=== PATIENT | male | born 1980 | race Caucasian/White ===

== ENCOUNTER 2022-05-30 09:20 | Inpatient (IN) | payer OTHER ==
[2022-05-30 10:28] VITALS: BMI 34.7
[2022-05-30] MEDS: NA CHLORIDE 0.9% 1,000 ML IV SCH ×2 (10:55→18:48)
[2022-05-30 12:08] LABS: Albumin 3.3 g/dL (3.4-5.0); Bilirubin Direct 0.2 mg/dL (0-0.2); Bilirubin Total 0.5 mg/dL (0.2-1.0); Protein, Total 6.4 g/dL (6.4-8.2)
[2022-05-30] MEDS ORDERED: MORPHINE 2 MG/ML SYR IV PRN (18:36)
--- NOTE | 2022-05-30 23:06 | HP ---
Date of Admission: 05/30/2022 Reason For Service: Acute cholecystitis, distended gallbladder, right upper quadrant abdominal pain, dilated common bile duct, possible pancreatitis, possible pancreatic mass. History Of Present Illness: This is a case of a 41-year-old patient, comes to us with epigastric rig ht upper quadrant pain radiating to the back, shows in a local ambulatory ER early this morning and a fter evaluation, ultrasound and CAT scan found to have a hydropic gallbladder with distention, also f ound to have a 1.4 cm hypodense lesion in the pancreatic head. They are not sure of his pancreatitis , if it is pancreatic cystic lesion or dilated common bile duct. When they did the ultrasound, they find the distention of the gallbladder and the hydrops, but they say it was difficult for them to vis ualize the gallbladder neck to tell us if there is a stone there or not. I received a phone call fro m the ER for transfer and I understand all this question, so we kindly accept to continue the workup. The patient denies any dysuria, hematuria, hematochezia, or melena. Denies any recent traveling ou t of the country. Denies any family member sick at home. Most of his family members has gallbladder issues with cholecystectomy done before, so he is not a surprise. Past Medical History: None. Past Surgical History: None. Allergies: NONE. Physical Examination: Chest: Clear. Abdomen: Soft and depressible. Epigastric right upper quadrant pain with Vera sign positive. The rest of abdomen is soft and depressible. HEENT: Pupils are equal and reactive. Anicteric. Neck: Supple. Rectal: Deferred. Extremities: Good capillary refill. Neuro: Cranial nerves 2 through 12 grossly within normal limits. Laboratory Data: Blood work still pending. The [facility] could not do lipase for us, trying to clarify the status of the pancreas since we have that pathology on imaging. A CAT scan of the abdomen and pe lvis shows hydropic gallbladder, limitations to evaluate the neck of the gallbladder. So, they canno t tell if there is a stone there or not. There is a 1.4 hypodense lesion in the pancreatic head, pos sible pancreatic cyst lesion or focally dilated common bile duct, pancreatitis cannot be ruled out si nce the lipase cannot be done in that institution. Ultrasound of the gallbladder done at [facility] also shows distended gallbladder. In the fundus of the gallbladder, they could not see any gallstones, bu t in the gallbladder neck where we expect to have a some gallstone to cause this issue and we could n ot visualize that area on the ultrasound. Also, the patient has fatty liver. Those findings were di scussed with the patient and the importance of following up with the primary doctor. Assessment: This is a 41-year-old patient with acute cholecystitis, right upper quadrant abdominal p ain, possible dilated common bile duct, possible stone, possible pancreatitis. The patient was admit teresa to this institution. We are going to do the rest of the blood work that is needed. Also to rule out this lesion in common bile duct, we are going to order an MRCP. The patient understands the richard efits and risks of laparoscopic or possible open cholecystectomy, which include, but not limited to i nfection, bleeding, damage to adjacent structures, anesthesia complication, choledocholithiasis, bile leak, pancreatitis, CT, and even . He also understands this may not relieve the symptoms. He might need more than one surgical intervention. He understands the plan. CLAUDIA Voice ID: [id number]
[2022-05-31] MEDS: NA CHLORIDE 0.9% 1,000 ML IV SCH ×2 (04:14→16:31)
[2022-05-31] MEDS: HYDROCODONE/APAP 5/325 MG TAB PO PRN ×3 (04:31→20:21)
--- NOTE | 2022-05-31 08:51 | RAD REPORT ---
EXAM DESCRIPTION: MRI - Cholangiogram - 05/31/2022 7:45 am CLINICAL HISTORY: 1.4cm pancreatic mass vs dilated CBD COMPARISON: No comparisons FINDINGS: Three-dimensional MRCP was performed using maximum intensity projection reconstruction on the same work station. No intra or extrahepatic biliary ductal dilatation is identified. Cystic structure at the pancreatic head measuring 11 millimeters. No pancreatic ductal dilatation. Pancreas otherwise normal in signal. There is a stone impacted near the cystic duct. Pericholecystic edema is noted. Negative for choledoc holithiasis. IMPRESSION: Stone impacted at the gallbladder neck with pericholecystic edema concerning for acute c holecystitis. Correlate with LFTs. No biliary ductal dilatation. Small cystic structure at the pancre atic head which is not contiguous with the common bile duct could represent a small intraductal papil salima mucinous neoplasm (IPMN) or other benign process suggest sequela of prior pancreatitis. Recommen d 12 month follow-up MRCP.
[2022-05-31] MEDS ORDERED: ACETAMINOPHEN 500 MG TAB ONE (10:36)
[2022-05-31] MEDS ORDERED: CELECOXIB 100 MG CAPSULE ONE (10:37)
[2022-05-31] MEDS ORDERED: propofoL 200 MG/20 ML VIAL IV ONE (10:46)
[2022-05-31] MEDS ORDERED: FENTANYL CITR 100 MCG/2 ML ONE (10:46)
[2022-05-31] MEDS ORDERED: CEFAZOLIN SODIUM 1 GM/VIAL ONE (10:46)
[2022-05-31] MEDS ORDERED: MIDAZOLAM HCL 2 MG/2 ML INJ ONE (10:46)
[2022-05-31] MEDS ORDERED: LIDOCAINE 1% MPF 5 ML VIAL ONE (10:47)
[2022-05-31] MEDS ORDERED: ROCURONIUM 50 MG/5 ML VIAL IV ONE (10:47)
[2022-05-31] MEDS ORDERED: ONDANSETRON 4 MG/2 ML VIAL ONE (10:48)
[2022-05-31] MEDS ORDERED: PIPER TAZO 3.375 GM in NA CHLORIDE 0.9% 100 ML IV ONE (11:00)
[2022-05-31] MEDS ORDERED: EPHEDRINE SULF 50 MG/ML VIAL ONE (11:24)
[2022-05-31] MEDS ORDERED: dexAMETHasone 4 MG/ML VIAL ONE (11:30)
--- NOTE | 2022-05-31 12:20 | P.BOP ---
Preoperative diagnosis: Acute cholecystitis, sympt cholelithiasis, pancreatitis Postoperative diagnosis: same, extensive intrabdominal adhesions Primary procedure: 1. Laparoscopic cholecystectomy Secondary procedure: 2. Laparoscopic lysis of adhesions Safety Net Maker: DANIELLE SARGENT (ELECTROTHERAPIST) Estimated blood loss: <20cc Specimen: GB Findings: as above. See dicta Anesthesia: General Complications: None Drain(s): LIANNA drain Transferred to: Recovery Room Condition: Good
[2022-05-31] MEDS ORDERED: KETOROLAC 30 MG/ML INJ ONE (12:53)
[2022-05-31 13:10] VITALS: O2SAT 98
[2022-05-31] MEDS: PIPER TAZO 3.375 GM in NA CHLORIDE 0.9% 100 ML IV SCH (16:33)
--- NOTE | 2022-05-31 16:57 | PN ---
Date of Progress Note: 05/31/2022 Reason For Service: Acute cholecystitis, pancreatitis and pancreatic mass, gallbladder hydrops, chol ecystitis, gallbladder wall edema with its stone impacted in the neck of the gallbladder. Subjective: This is a case of a 41-year-old patient transferred from [facility] ER with acute cholecystit is. Initially, ultrasound and CT scans were inconclusive. We just had an MRI in that area that gave us a little bit more understanding of what was going on with him. He still have Vera sign positiv e on the MRI when they are to review with Dr. Dunham and his radiologist in his office and is still show showing gallbladder wall edema, the hydrops and stone impacted in the neck of the gallbladder. Ther e are also some findings on the area of the pancreas which he does not believe anything important. I just recommend an MRCP in 1 year from now and it is very certain he is not involved in this process of the gallbladder. We have to mention this patient had surgery when he was a baby that he was say i t was in the duodenum. Never have any issues after that until now when he has his neck and packed in the gallbladder area. I discussed the case with him at length. Discussed with him the ultrasound, CT scan, the blood work with normal amylase, normal lipase. Discussed with him also the findings of the pancreas, although they are not since we are queued or related to the gallbladder at this moment. It is still a mystery in that region that should be examined in the future. We recommend not to fo rget about this. He has a transverse incision in the right upper side. We have no records of his burr rgery when he was a baby. The patient is still having pain and the gallbladder is distended. We wer e afraid this may develop into some ischemia eventually, so for that reason, we offered him laparosco pic possible open cholecystectomy with benefits, alternatives, and risks including, but not limited t o infection, bleeding, damage to adjacent structures as complication, choledocholithiasis, bile leak, pancreatitis, [place], and even . He also understands this may not relieve any symptoms. He might need more than one surgical intervention. We are going to do a diagnostic lap first. We understand h is previous surgery, so he might not be able to complete the procedure. He understands that part. I f we find out that there is more disease or pathologies that we could not find neither an MRI judging by the lack of seen the stone previously on the CAT scan and the ultrasound even though it was there . He understand the limitations of the imaging. After discussing the pros and cons, he still want t o proceed with laparoscopic possible open cholecystectomy. There is always an option of percutaneous drainage of the gallbladder, if the gallbladder surgery cannot be done, but he wants to do that as a n alternative, not as the main treatment. Understanding all this, the pros and cons of this, then we will proceed with the surgical intervention. IVY/JAVIER Voice ID: [id number] Report ID: [id number]
--- NOTE | 2022-05-31 18:28 | OP ---
Date of Procedure: 05/31/2022 Surgeon: Mj Yates MD Preoperative Diagnoses: Acute cholecystitis symptomatic cholelithiasis, gallbladder distention, gall bladder obstruction, pancreatitis, history of duodenal surgery when he was a baby, possible pancreati c mass versus cyst. Postoperative Diagnosis: Acute cholecystitis symptomatic cholelithiasis, gallbladder distention, gal lbladder obstruction, pancreatitis, history of duodenal surgery when he was a baby, possible pancreat ic mass versus cyst plus extensive intraabdominal adhesions. Procedures: Laparoscopic cholecystectomy, laparoscopic lysis of adhesions. Anesthesia: General plus local. Complications: None. Findings: Inflamed gallbladder distention, multiple scar tissue in the abdomen. The patient has a m idline incision across the right upper quadrant from previous surgery when he was a young. All that area have scar tissue and have to be removed and also scar tissue to the gallbladder and to the liver that needs to be removed before we even start the case. As described on the MRCP, there is a stone impacted in the neck of the gallbladder. There is high drop with purulent discharge coming from the gallbladder itself too. Drains: LIANNA #10. Indication: This is the case of a 41-year-old patient with abdominal pain, Vera sign positive in r ight upper quadrant, still active, previous ultrasound and CAT scan done during this admission in [facility] before, shows no gallstones, but the case did not make sense, so we have an MRCP done this morning , which just showed some light and help us understand better his conditions and treat him better. Th e patient has previous surgery for congenital problems as he described it, although he cannot give us details and that he has a large right upper quadrant incision and he says it was some duodenum probl ems there. They have some connections. The patient also on the CAT scan and the MRI showed some fin dings on the pancreas, but the radiologist does not believe it is reactive, could be just from the pr evious surgery, but they recommended to have an MRCP in the future. The patient knows that it is imp ortant that he follow up with his doctor there. The patient was not getting better, the gallbladder is getting more swollen, Vera sign positive, so understanding all these risks and all these limitat ions, we offered him also options and the case will be either percutaneous drainage of the gallbladde r or laparoscopic cholecystectomy. He obviously preferred laparoscopic cholecystectomy after we expl ained to him the pros and cons of each procedure. The benefits, alternatives, and risks of laparosco pic possible open cholecystectomy fully explained, which include, but not limited to infection, bleed ing, damage to adjacent structures, anesthesia complication, choledocholithiasis, bile leak, pancreat itis, [place], and even . He also understands this may not relieve any symptoms. He might need more than one surgical intervention. He understood and signed the consent. Procedure: The patient was brought to the operating room, placed in supine position. Anesthesia was done without complication. Abdominal area was prepped and draped in the usual sterile fashion. Mar junito 0.5% was injected for local anesthetic followed by sharp incision of the skin in the infraumbil ical region. The incision was carried down to fascia, which was opened under direct vision. Periton eum was encountered, opened under direct vision. Vicryl #1 placed inside the fascia. Dee trocar was carefully introduced. Pneumoperitoneum was obtained. Immediately, we noticed all the scar tissu e in the right upper quadrant, so I placed a 5 mm trocar sequentially as we removed the adhesions in the right upper quadrant under direct visualization. The adhesions were removed with the help of Lig aSure. We spent about half of the time just doing the adhesions itself, also some adhesions of oment um to the liver not allowing the gallbladder to be visualized and also omental adhesions to the gallb ladder too. So in a very careful fashion slow but making progress, we proceeded to remove all these adhesions until we have the anatomy defined. Once we have that, we put a grasper in the fundus of th e gallbladder, another grasper in the infundibulum, retracting the gallbladder in the inferolateral f ashion, exposing the triangle of Calot, obtaining critical view. Cystic duct and cystic artery were clearly isolated, freed circumferentially and a connection between those and the gallbladder was eddie rly identified. I proceeded to ligate those by using at least 3 clips proximal, 1 clip distal, ligat ion in middle. Same was done with the cystic artery. No bile leak. No bleeding. The gallbladder w as removed from liver using Bovie cauterizer and removed from abdominal cavity using EndoCatch throug h the umbilical incision. We have to extend incision on the bellybutton since the gallbladder was so thick and gallstone did not come through our initial incision. Camera was placed once again after p neumoperitoneum was obtained. We checked for hemostasis. There was a lot of dissection in that area , a lot of raw area on the liver region. We obtained hemostasis, but we also left a LIANNA drain coming through 1 of the trocar sites and secured in place with 3-0 nylon. This is in the right upper. At t hat moment, I proceeded to remove the trocars under direct vision after making sure we have hemostasi s and made sure the adhesions also have no bleeding. At that moment, I proceeded to remove the troca rs under direct vision. Deflated the pneumoperitoneum. Closed the fascia with #1 Vicryl. Irrigated subcutaneous tissue, closed that with 3-0 chromic and the skin with blade. LIANNA was connected to bu lb suction. The patient tolerated the procedure well. The patient on his way to recovery in stable condition. IVY/JAVIER Voice ID: [id number] Report ID: [id number]
[2022-05-31] MEDS: MORPHINE 4 MG/ML SYR IV PRN ×2 (21:41→23:54)
[2022-06-01] MEDS: PIPER TAZO 3.375 GM in NA CHLORIDE 0.9% 100 ML IV SCH ×2 (00:50→08:12)
[2022-06-01] MEDS: HYDROCODONE/APAP 5/325 MG TAB PO PRN ×2 (03:07→08:13)
[2022-06-01] MEDS: NA CHLORIDE 0.9% 1,000 ML IV SCH (03:08)
--- NOTE | 2022-06-01 13:38 | P.DS ---
Admission Date: 05/30/22 Discharge Date: 06/01/22 Disposition: ROUTINE DISCHARGE Discharge Condition: GOOD Vital Signs/Physical Exam: Temp Pulse Resp BP Pulse Ox 97.7 F 68 14 106/61 97 06/01/22 04:00 06/01/22 08:00 06/01/22 09:13 06/01/22 08:00 06/01/22 09:13 General: Alert, Oriented x3, Cooperative HEENT: PERRLA, EOMI, Sclerae nonicteric Neck: Supple Respiratory: Normal air movement Gastrointestinal: Other (LIANNA clear) Musculoskeletal: No erythema, No tenderness, No warmth Integumentary: No rashes Neurological: Normal speech Laboratory Data at Discharge: Creatinine 1.24 mg/dL (0.55-1.3) 06/01/22 10:17 Total Bilirubin 0.5 mg/dL (0.2-1.0) 05/30/22 11:17 AST 15 U/L (15-37) 05/30/22 11:17 ALT 24 U/L (12-78) 05/30/22 11:17 Alkaline Phosphatase 99 U/L (45-117) 05/30/22 11:17 Amylase 44 U/L (25-115) 05/30/22 11:17 Lipase 114 U/L (73-393) 05/30/22 11:17 Home Medications: Aspirin 81 mg PO DAILY 05/30/22 Cholecalciferol (Vitamin D3) [Vitamin D3] 50 mcg PO DAILY 05/30/22 Cyanocobalamin (Vitamin B-12) [Vitamin B12] 5,000 mcg PO DAILY 05/30/22 Fexofenadine/Pseudoephedrine [Eloise-D 24 Hour Tablet] 1 each PO DAILY 05/30/22 Irbesartan 300 mg PO DAILY 05/30/22 Magnesium Oxide [Magnesium] 400 mg PO DAILY 05/30/22 Metoprolol Succinate [Toprol Xl] 100 mg PO DAILY 05/30/22 hydroCHLOROthiazide [Hydrochlorothiazide*] 12.5 mg PO DAILY 05/30/22 Physician Discharge Instructions: KEep area dry and clean until next doctor visit F/u at my office monday, call for appt, LIANNA drain to bulb suction, record output q24h Diet: AHA Activity: No lifting more than 10 lbs Followup: Mj Yates MD [ACTIVE - CAN ADMIT] - 06/03/22
[2022-06-01 14:06] VITALS: BP 126/72; TEMP 96.9
== END 2022-06-01 15:14 | disposition home or self-care (01) | DRG 417 ==
LOC: 2ND 09:32
PROVIDERS: ADMIT Surgery; ATTEND Surgery
PROC: 0DNW4ZZ Release Peritoneum, Percutaneous Endoscopic Approach (ICD-10-PCS; 2022-05-31)
PROC: 0FT44ZZ Resection of Gallbladder, Percutaneous Endoscopic Approach (ICD-10-PCS; principal; 2022-05-31 10:30)
DX: K80.01 Calculus of gallbladder with acute cholecystitis with obstruction (principal); K85.90 Acute pancreatitis without necrosis or infection, unspecified; K82.1 Hydrops of gallbladder; K82.8 Other specified diseases of gallbladder; K66.0 Peritoneal adhesions (postprocedural) (postinfection)
CPT/HCPCS: 36415; 74181; 80076; 82150; 82565; 83690; 88304; 94010; J0690; J1100; J2250; J2405; J2543; J2704; J3010; J7030